=== PATIENT | female | born 1965 | race Caucasian/White ===

== ENCOUNTER 2016-11-12 11:39 | Day surgery (SDC) | payer MEDICAID ==
[~2016-11-12 11:39] MED LIST: ALBUTEROL-200 PUFFS/ IH; AMITRIPTYLINE 225 MG PO; CITALOPRAM20 M1 PO; CYCLOBENZAPRINE10 M1 PO; GABAPENTIN 400400 M1 PO; HYDROXYZINE PAM50 MG PO; KEFLEX 500MG.500 MG PO; LODINE400 MG PO; MAG-OX 400MG T400 MG PO; NAPROSYN500 M1 PO; OXYCODONE5 MG PO; Oxycodone5 MG NG; Oxycodone5 MG PO; PANTOPRAZOLE SO40 M1 PO; RANITIDINE HCL150 MG PO; RIBAVIRIN200 M1 PO; ROBAXIN-750750 MG PO; SERTRALINE HYDR25 MG PO; SOVALDI400 MG PO; SYMBICORT1 AE1 IH; TRAMADOL 50MG T50 M1 PO; VENTOLIN H0.09 MG/Ac IH
--- NOTE | 2016-11-12 14:53 | RADIOLOGY REPORT PS360 ---
Procedure: Left heart catheter, selective coronary angiography, and left ventriculogram. Indication: Chronic tobacco use, hypertension, hyperlipidemia, chest pain, abnormal stress test. Procedure: Patient was brought into cardiac catheter lab in hemodynamically stable condition, after the informed consent right groin was prepared in the usual manner, 4 [place] femoral sheath was introduced in the right femoral artery, cardiac catheterization was performed using JL4, 3 DRC and pigtail catheter. Patient tolerated the procedure well. Findings 1. The left main is angiographically normal. 2. The left anterior descending artery has mild plaque disease less than 10% stenosis. 3. The left circumflex has mild plaque disease, less than 10% stenosis. 4. The right coronary artery is dominant, there is mild aneurysmal dilatation of the mid right coronary artery, less than 10% stenosis seen. 5. The left ventricular end-diastolic pressure is 20 mmHg. 6. The left ventriculogram reveals an ejection fraction of 45% with mild left ventricular global hypokinesis, there is no angiographic mitral regurgitation. 7. There is no gradient across the aortic valve. Conclusion: 1. Nonobstructive coronary artery disease as described above left ventricular ejection fraction of 45% with mild left ventricular global hypokinesis. 2. Elevated left ventricular end-diastolic pressure likely secondary to hypertensive heart disease. 3. Falsely abnormal myocardial perfusion imaging. PLAN 1. Medical management and aggressive risk modification.
[2016-11-12 17:41] VITALS: BP 141/101
[2016-12-25] MEDS ORDERED: LOSARTAN POTASS50 MG PO (16:52)
[2017-01-01] MEDS ORDERED: LEVOTHYROXINE0.1 M1 PO (17:36)
[2017-01-02] MEDS ORDERED: IBUPROFEN800 MG PO (10:16)
[2017-01-02] MEDS ORDERED: CALCIUM CITRATE1 TA1 PO (10:16)
[2017-01-02] MEDS ORDERED: TIZANIDINE HCL 44 MG NG (10:17)
[2017-01-02] MEDS ORDERED: GABAPENTIN800 MG PO (10:17)
[2017-01-02] MEDS ORDERED: TRAZODONE150 MG PO (10:18)
[2017-01-02] MEDS ORDERED: WELLBUTRIN 150150 MG PO (10:18)
[2017-01-02] MEDS ORDERED: DICLOFENAC SODI75 M4 PO (10:19)
[2017-01-02] MEDS ORDERED: IPRATROPIUM BROM3 M2 IH (10:19)
[2017-01-02] MEDS ORDERED: KROGER NIC14 MG/24 H TD (10:20)
[2017-01-06] MEDS ORDERED: BACTRIM DS 8001 TA1 PO (08:15)
[2017-01-06] MEDS ORDERED: OMNICEF 300 MG300 MG PO (08:15)
[2017-01-06] MEDS ORDERED: NICODERM C14 MG/24 H TD (08:16)
== END 2016-11-12 17:45 | disposition home or self-care (01) ==
LOC: CATHLAB 11:39
PROVIDERS: Internal Medicine Cardiovascular Disease
PROC: B2111ZZ Fluoroscopy of Multiple Coronary Arteries using Low Osmolar Contrast (ICD-10-PCS; 2016-11-12)
PROC: B2151ZZ Fluoroscopy of Left Heart using Low Osmolar Contrast (ICD-10-PCS; 2016-11-12)
PROC: 4A023N7 Measurement of Cardiac Sampling and Pressure, Left Heart, Percutaneous Approach (ICD-10-PCS; principal; 2016-11-12 13:30)
DX: R07.9 Chest pain, unspecified (principal); R94.39 Abnormal result of other cardiovascular function study; I10 Essential (primary) hypertension; Z72.0 Tobacco use
CPT/HCPCS: C1725; C1769; J1644; Q9967